=== PATIENT | female | born 1985 | race Caucasian/White ===

== ENCOUNTER 2022-02-14 18:44 | Emergency (ER) | payer OTHER, SELFPAY ==
--- NOTE | 2022-02-14 18:45 | ED.URI ---
HPI - URI/Sore Throat General Chief Complaint: Upper Respiratory Infection Stated Complaint: SOB/COUGH Time Seen by Provider: 02/14/22 18:45 Source: patient and RN notes reviewed History of Present Illness HPI Narrative: Patient is a 36-year-old female who presents to urgent care with complaints of shortness of breath and cough. Patient states she has been sick for approximately 1 week and everyone her her home has had influenza A. Patient states that it got worse with body aches and fever this afternoon. Patient does have a history of asthma and has been using her Spiriva without much relief. Patient states she called her primary care doctor today who placed her on azithromycin. No other acute complaints. No acute distress noted. Patient aware of plan of care. Some parts of this dictation were generated by voice recognition software and may contain typographical and/or grammatical inaccuracies. Related Data Allergies Allergy/AdvReac Type Severity Reaction Status Date / Time No Known Allergies Allergy Verified 02/14/22 18:52 Review of Systems Review of Systems: CONSTITUTIONAL: Reports of fever, chills, fatigue EYES: Denies visual changes, redness, or discharge. ENT: Denies rhinorrhea, congestion, sore throat, or otalgia. CARDIOVASCULAR: Denies chest pain, palpitations, or edema. RESPIRATORY: Reports of cough and dyspnea GASTROINTESTINAL: Denies abdominal pain, nausea, vomiting, or diarrhea. GENITOURINARY: Denies dysuria or hematuria. SKIN: Denies rash or itching. MUSCULOSKELETAL: Denies back pain, joint pain. Reports body aches NEUROLOGIC: Denies headache, numbness, or weakness. All other systems reviewed are negative, except as documented in HPI. [facility] Family History Family History (Updated 06/10/21 @ 09:05 by Rona Kim MA) Other Breast cancer Grandparent Diabetes mellitus Father Hypertension Mother Pancreatic cancer Social History Social History (Updated 06/10/21 @ 09:06 by Rona Kim MA) Smoking status: Never smoker Second hand tobacco smoke exposure: No Alcohol intake: current Alcohol use details: Social Substance use: never Substance use type: does not use Gender identity (if verbalized by the patient): Female Sexual Orientation (if Verbalized by the Patient): Straight or Heterosexual Spiritual care concerns: No Agree to blood products: Yes Comments At the time of my signature, I reviewed and agree with the nursing past medical, surgical, social, and family history. There is no relevant family history pertinent to the patient complaint. Exam Narrative: GENERAL: This is a well-nourished, well-developed patient. Appears fatigued HEAD: normocephalic, atraumatic. EYES: PERRL. Sclera clear/white. Vision is grossly intact. EARS: External ears normal, auditory canals clear and without drainage, TMs normal without perforation. Hearing grossly intact. NOSE: External nose normal with no obvious nasal discharge, nares without redness, no rhinorrhea. THROAT: Mucous membranes moist, posterior pharynx clear. Moderate postnasal drainage NECK: Neck supple CARDIOVASCULAR: Sinus tachycardia RESPIRATORY: Tight Coarse inspiratory and expiratory wheezes throughout, slightly dsynic SKIN: warm, intact with no suspicious lesions or rash, good texture and turgor. NEURO: awake, alert, and oriented to person, place and time. There were no obvious focal neurologic abnormalities. EXTREMITIES: No clubbing, cyanosis, or edema. Course Course Level of Care: Express Care Visit Vital Signs Vital signs: Vital Signs Temperature 99.3 F 02/14/22 18:54 Pulse Rate 122 H 02/14/22 18:54 Respiratory Rate 16 02/14/22 18:54 Blood Pressure 130/82 02/14/22 18:54 Pulse Oximetry 96 02/14/22 18:54 Temperature 99.3 F 02/14/22 18:54 Pulse Rate 122 H 02/14/22 18:54 Respiratory Rate 16 02/14/22 18:54 Blood Pressure 130/82 02/14/22 18:54 Pulse Oximetry 96 02/14/22 18:5
[2022-02-14 18:54] VITALS: BP 130/82; PULSE 122; RESP 16; TEMP 37.4; O2SAT 96
[2022-02-14] MEDS: ALBUTEROL SULFATE NEB 2.5 MG/3 ML INH INHALATION (19:04)
[2022-02-14] MEDS: IPRATROPIUM BR 0.02% INH SOLN 0.5 MG/2.5 ML VIAL INHALATION (19:05)
[2022-02-14 19:29] VITALS: PULSE 132; RESP 21; O2SAT 96
== END 2022-02-14 19:29 | disposition home or self-care (01) ==
PROVIDERS: Emergency Provider Nurse Practitioner Family; PCP Family Medicine Adolescent Medicine
DX: J45.20 Mild intermittent asthma, uncomplicated (principal); J06.9 Acute upper respiratory infection, unspecified
CPT/HCPCS: 94640; 99213; G0463

== ENCOUNTER 2024-07-07 16:02 | Emergency (ER) | payer OTHER, SELFPAY ==
--- NOTE | 2024-07-07 16:06 | ED_ITS ---
HPI - Back Pain/Injury General Chief Complaint: Back Pain/Injury Stated Complaint: Lower Back Pain Time Seen by Provider: 07/07/24 16:21 Source: patient and RN notes reviewed Mode of arrival: ambulatory Limitations: no limitations History of Present Illness HPI Narrative: 38-year-old female presents with concern for left-sided low back pain. Reports symptoms started Monday after getting back from vacation and sleeping in a different bed and walking a lot. She reports she can not find a position of comfort after she sits for a while but any movement, bending, stretching, changing positions is painful and shoots down her leg. She has been taking a lot of ibuprofen, stretching and using he without relief. She denies loss of bowel or bladder function, perianal anesthesia, weakness in any extremity, per ianal numbness, abdominal pain, fever MD elicited complaint: back pain Related Data Allergies Allergy/AdvReac Type Severity Reaction Status Date / Time No Known Allergies Allergy Verified 07/07/24 16:19 Review of Systems Review of Systems: CONSTITUTIONAL: Denies malaise, chills, sweats, or fever. CARDIOVASCULAR: Denies chest pain, palpitations, or edema. RESPIRATORY: Denies cough or dyspnea. GASTROINTESTINAL: Denies abdominal pain, nausea, vomiting, diarrhea, loss of bowel function GENITOURINARY: Denies dysuria, hematuria, frequency, loss of bladder function. SKIN: Denies rash or itching. MUSCULOSKELETAL: Reports left low back pain NEUROLOGIC: Denies numbness, weakness, or headache. All systems reviewed & are unremarkable except as noted in HPI and below [facility] Family History Family History (Updated 06/10/21 @ 09:05 by Rona Kim MA) Other Breast cancer Grandparent Diabetes mellitus Father Hypertension Mother Pancreatic cancer Social History Social History (Updated 11/29/23 @ 08:57 by Nery Davey CMA) Smoking status: Never smoker Second hand tobacco smoke exposure: No Alcohol intake: current Alcohol use details: Social Substance use: never Substance use type: does not use Do You Feel Safe in your Home?: Yes Lack of Transportation: No Lack of Food: Never True Current Housing: I Have Housing Concerned About Future Housing: No Difficulty Paying Gas/Electric Bills: No Difficulty Paying for Meds: No Currently Unemployed: No Education: Bachelor's Degree Difficulty w/ Childcare or Family Care: No Living arrangements: with family Occupation/Education: occupation Gender identity (if verbalized by the patient): Female Sexual Orientation (if Verbalized by the Patient): Straight or Heterosexual Spiritual care concerns: No Agree to blood products: Yes Comments At time of signature, agree with nursing past medical, surgical, social and family history. There is no relevant family history pertinent to the presenting complaint Exam Narrative: GENERAL: Well-appearing, well-nourished, and in no acute distress. HEAD: Normocephalic, atraumatic. EYES: PERRLA and EOMI. NECK: Supple. No lymphadenopathy. CHEST: Clear to auscultation. No respiratory distress. HEART: Regular rate and rhythm. Distal pulses palpable and equal, cap refill <3 seconds ABDOMEN: Soft, nontender, nondistended, normal active bowel sounds, no palpable or pulsatile masses. No CVA tenderness MUSCULOSKELETAL: Normal range of motion and strength in all extremities; 5/5 strength with hip flexion and extension, dorsiflexion and extension, knee flexion and extension, plantar flexion and extension. Normal sensation in dermatomal distributions with sensitivity to light touch and pain. No midline back tenderness to palpation. No paraspinal tenderness. Transfers from sitting to standing. SKIN: Warm, dry, no rash. No ecchymosis, erythema, open wounds to back. NEURO: No focal deficits. Alert and oriented x3. Reflexes intact. Normal gait. PSYCH: Normal mood and affect Course Course Emergency Course: Patient is aware of diagnosis, understands and agrees to treatment plan. Anticipatory guidance given. Patient agrees to follow-up as directed and is aware of reasons to seek care at the emergency department. Portions of this record may have been created with voice recognition software Level of Care: Express Care Visit Vital Signs Vital signs: Reviewed. MDM - Back Pain/Injury MDM Narrative Medical decision making narrative: I evaluated this in the express care. History is obtained from patient who is an independent historian and physical exam was performed.? Available medical records were reviewed. ? Exam findings and relevant testing show no acute concerns or changes; patient is non-toxic appearing and is in no distress. No risk factors or findings concerning for epidural abscess, diskitis, vertebral osteomyelitis, cord compression, cauda equina, vertebral fracture or bone malignancy, AAA, or pyelonephritis. Patient instructed to consider further imaging and workup through their primary care physician as an outpatient if symptoms persist. ? Differential diagnosis and treatment plan were discussed with the patient. Patient agrees with discussion and after shared medical decision making agrees with plan of care. All questions were answered to the patient's satisfaction. Patient is appropriate for outpatient treatment and follow-up. Critical Care Time Critical Care Time Critical Care Time: No Discharge Plan Discharge Clinical Impression: Nonspecific low back pain Patient Disposition: Home Condition: Stable Instructions: Acute Low Back Pain (ED) Additional Instructions: Please follow up with your Primary Care Doctor within 48-72 hours - call for an appointment. Walking and other gentle exercising several times a week has been shown to improve back pain; bed rest is not recommended. Take prednisone as directed, take muscle relaxers every 8 hours as needed for muscle spasm- do not drive or make any important decisions while on this medication for it can make you drowsy. You may apply ice to the area as needed. If you experience any worsening pain, swelling, numbness, weakness please go to ER. Contact your d octor or go to the emergency department if you develop problems with bladder or bowel function, weakness or loss of feeling in one or both of your legs, or any other serious concerns. Patient Language: Tajik Prescriptions: New cyclobenzaprine 10 mg tablet 10 mg PO TID PRN (Reason: muscle spasm) Qty: 20 0RF prednisone 50 mg tablet 50 mg PO DAILY 5 Days Qty: 5 0RF No Action albuterol sulfate 2.5 mg /3 mL (0.083 %) solution for nebulization 2.5 mg inhalation Q6H Qty: 75 0RF albuterol sulfate 90 mcg/actuation HFA aerosol inhaler 2 puff INHALATION QID PRN (Reason: shortness of breath or wheezing) Qty: 8 0RF (DME) nebulizers [Aeroneb Go Nebulizer] Misc See Rx Instructions .Route Qty: 1 0RF Rx Instructions: As directed phentermine 15 mg capsule 15 mg PO DAILY Qty: 30 0RF Rx Instructions: must administer 2 hours after breakfast levothyroxine [Euthyrox] 125 mcg tablet 125 mcg PO DAILY Qty: 90 1RF budesonide-formoterol [Symbicort] 160-4.5 mcg/actuation HFA aerosol inhaler 2 puff inhalation BID Qty: 10.2 8RF Follow-up/Referrals: PHYSICIAN,BLENDING COORDINATOR [Primary Care Provider] - Time of Disposition: 16:31
== END 2024-07-07 16:34 | disposition home or self-care (01) ==
PROVIDERS: Emergency Provider Nurse Practitioner
DX: M54.50 Low back pain, unspecified (principal)
CPT/HCPCS: 99213; G0463

== ENCOUNTER 2025-01-11 08:20 | Emergency (ER) | payer OTHER, SELFPAY ==
--- NOTE | 2025-01-11 08:53 | ED.GENADULT ---
HPI - General Adult General Chief complaint: Upper Respiratory Infection Stated complaint: shortness of breath, wheezing Time Seen by Provider: 01/11/25 08:53 Source: patient Mode of arrival: ambulatory Limitations: no limitations History of Present Illness HPI narrative: 39-year-old female patient presents to the [facility] with complaints of shortness of breath and wheezing. Patient states that last week she got her annual flu shot. Patient states that shortly after getting her flu shot she started having some body aches, chills low-grade fevers and just overall not feeling well. Patient states that throughout the week and had progressed into a coughing, wheezing. Patient states she was out at a soccer game last night and that her wheezing and coughing got significantly worse. Patient states she did have a nebulizer at home and did do a nebulizer treatment this morning at 3:00 a.m. which has helped. Patient states most of hers symptoms have resolved except she continues to have coughing shortness of breath and wheezing. Patient states she does take Symbicort daily and states she has been off of her thyroid medication for about A month now. Patient states she has also been constipated due to being off of her thyroid medication. Related Data Allergies Allergy/AdvReac Type Severity Reaction Status Date / Time No Known Allergies Allergy Verified 07/07/24 16:19 Review of Systems Review of Systems: CONSTITUTIONAL: Denies fever, chills, or sweats. EYES: Denies visual changes, redness, or discharge. ENT: Denies rhinorrhea, congestion, sore throat, or otalgia. CARDIOVASCULAR: Denies chest pain, palpitations, or edema. RESPIRATORY: Positive cough with wheezing and dyspnea. GASTROINTESTINAL: Denies abdominal pain, nausea, vomiting, or diarrhea. positive constipation GENITOURINARY: Denies dysuria or hematuria. SKIN: Denies rash or itching. MUSCULOSKELETAL: Denies back pain, joint pain, or myalgia. NEUROLOGIC: Denies headache, numbness, or weakness. PSYCHIATRIC: Denies anxiety or depression. [facility] Family History Family History Other Breast cancer Grandparent Diabetes mellitus Father Hypertension Mother Pancreatic cancer Social History Social History Smoking status: Never smoker Second hand tobacco smoke exposure: No Alcohol intake: current Alcohol use details: Social Substance use: never Substance use type: does not use Do You Feel Safe in your Home?: Yes Lack of Transportation: No Lack of Food: Never True Current Housing: I Have Housing Concerned About Future Housing: No Difficulty Paying Gas/Electric Bills: No Difficulty Paying for Meds: No Currently Unemployed: No Education: Bachelor's Degree Difficulty w/ Childcare or Family Care: No Living arrangements: with family Occupation/Education: occupation Gender identity (if verbalized by the patient): Female Sexual Orientation (if Verbalized by the Patient): Straight or Heterosexual Spiritual care concerns: No Agree to blood products: Yes Comments At the time of my signature I agree with nursing past medical history, surgical, social, and family history. There is no relevant family history pertinent to the presenting complaint. Exam Narrative: GENERAL: Well-appearing, well-nourished, and in no acute distress. HEAD: Normocephalic, atraumatic. EYES: PERRLA and EOMI. ENT: Nares clear, no rhinorrhea or epistaxis. Mucous membranes moist. mild fluid noted behind bilateral TMs on exam. Posterior pharynx with no erythema, tonsillar enlargement, exudates or lesions present. NECK: Supple. No lymphadenopathy CHEST: Patient has very tight airways noted on auscultation with wheezing on is elevation in exhalation in all 4 quadrants of lungs.. No respiratory distress. Patient is able take talk in clear complete sentences no tripoding noted. HEART: Regular rate and rhythm. No murmur heard. Normal peripheral pulses. ABDOMEN: Soft, nontender, nondistended, normal active bowel sounds. EXTREMITIES: Normal range of motion. No edema. SKIN: Warm, dry, no rash. NEURO: No focal deficits. Alert and oriented x3. Course Course Level of Care: Express Care Visit Reevaluation(s) Reevaluation #1: re-evaluated patient after receiving the neb treatment. Patient states she does feel much better and feels like she is able to take in [place] deeper breath. The expiratory wheezing in all 4 lobes has improved continues to have some inspiratory wheezing. Discussed with patient to obtain the medications we sent to the pharmacy as well as the neb treatment that we gave her should continue to improve her symptoms in the next couple of hours. Date: 01/11/25 Time: 09:47 Vital Signs Vital signs: Vital Signs Temperature 36.7 C 10/25/25 08:56 Pulse Rate 104 H 01/11/25 08:56 Respiratory Rate 20 01/11/25 08:56 Blood Pressure 121/83 01/11/25 08:56 Pulse Oximetry 97 01/11/25 08:56 Oxygen Delivery Room Air 01/11/25 08:56 Temperature 36.7 C 01/11/25 08:56 Pulse Rate 104 H 01/11/25 09:32 Respiratory Rate 20 01/11/25 09:32 Blood Pressure 121/83 01/11/25 08:56 Pulse Oximetry 97 01/11/25 09:32 Oxygen Delivery Room Air 01/11/25 08:56 Vital signs reviewed. Medical Decision Making MDM Narrative Medical decision making narrative: Plan care for patient is to provide her a DuoNeb treatment in the clinic today to help with the tightening of the airways and the wheezing and coughing. Will discharge home with oral steroids, and albuterol inhaler and refills for her nebulizer. Discussed with patient to take a 24 hour antihistamine something such as Zyrtec, Claritin or Bernie and can also use a Flonase to help with the fluid behind the ears. Patient verbalized understanding denies any other questions or concerns at this time. Differential Diagnosis Differential Diagnosis: Differential diagnosis: Allergic rhinitis, chronic sinusitis, tonsillitis, acute sinusitis, infectious mononucleosis, seasonal influenza, pertussis, diphtheria, meningococcal disease, viral syndrome, viral bronchitis, RSV, COVID-19 Vital Signs Vital Signs: Vital Signs Temperature 36.7 C 01/11/25 08:56 Pulse Rate 104 H 01/11/25 08:56 Respiratory Rate 20 01/11/25 08:56 Blood Pressure 121/83 01/11/25 08:56 Pulse Oximetry 97 01/11/25 08:56 Oxygen Delivery Room Air 01/11/25 08:56 Temperature 36.7 C 01/11/25 08:56 Pulse Rate 104 H 01/11/25 09:32 Respiratory Rate 20 01/11/25 09:32 Blood Pressure 121/83 01/11/25 08:56 Pulse Oximetry 97 01/11/25 09:32 Oxygen Delivery Room Air 01/11/25 08:56 Critical Care Time Critical Care Time Critical Care Time: No Discharge Plan Discharge Clinical Impression: Viral URI with cough, Asthma exacerbation Patient Disposition: Home Condition: Stable Instructions: Antibiotic Form, Asthma (ED), Viral Syndrome (ED) Additional Instructions: Wheezing conditions can change rapidly. He can be doing well and then have difficulty breathing only a short while later. Some things worsen wheezing or colds, smoke, pets, dust, allergies, and exercise. Follow-up with your primary care physician in the next 5-7 days. Increase fluid intake. May take Tylenol or ibuprofen as directed for fever. No smoking!! This is very important. Smokers in the shower and change clothes before entering the house. Cigarette smoke or odor is harmful to wheezing lungs. Calling her doctor return to the emergency department if your condition worsens or: Wheezing is not better. Breathing is difficult or to fast. There are retractions (the skin between or under the ribs sucks and when breathing). Chest pain occurs. Drowsy or sleepy. Pale color or blue/traore color is seen in the lips or fingernails (call 911). Patient Language: Georgian Prescriptions: New albuterol sulfate 2.5 mg /3 mL (0.083 %) solution for nebulization 2.5 mg INHALATION Q4H PRN (Reason: shortness of breath or wheezing) Qty: 75 0RF prednisone 20 mg tablet 40 mg PO DAILY 5 Days Qty: 10 0RF albuterol sulfate [Ventolin HFA] 90 mcg/actuation HFA aerosol inhaler 2 puff INHALATION .Q4 hours PRN (Reason: cough) Qty: 18 0RF No Action albuterol sulfate 2.5 mg /3 mL (0.083 %) solution for nebulization 2.5 mg inhalation Q6H Qty: 75 0RF albuterol sulfate 90 mcg/actuation HFA aerosol inhaler 2 puff INHALATION QID PRN (Reason: shortness of breath or wheezing) Qty: 8 0RF (DME) nebulizers [Aeroneb Go Nebulizer] Misc See Rx Instructions .Route Qty: 1 0RF Rx Instructions: As directed budesonide-formoterol [Symbicort] 160-4.5 mcg/actuation HFA aerosol inhaler 2 puff inhalation BID Qty: 10.2 8RF Follow-up/Referrals: John Correa MD [Primary Care Provider, Family Practice] Time of Disposition: 09:46
[2025-01-11 08:56] VITALS: BP 121/83; PULSE 104; RESP 20; TEMP 36.7; O2SAT 97
[2025-01-11] MEDS: IPRATROPIUM 0.5 MG/ALBUTEROL SULFATE 2.5 MG (BASE) AMPUL.NEB 3 ML INHALATION (09:31)
[2025-01-11 09:32] VITALS: PULSE 104; RESP 20; O2SAT 97
[2025-01-11 09:45] VITALS: PULSE 110; RESP 20; O2SAT 97
== END 2025-01-11 09:48 | disposition home or self-care (01) ==
PROVIDERS: Emergency Provider Nurse Practitioner Family; PCP Family Medicine Adolescent Medicine
DX: J06.9 Acute upper respiratory infection, unspecified (principal); R05.9 Cough, unspecified; J45.901 Unspecified asthma with (acute) exacerbation
CPT/HCPCS: 94640; 99213; G0463